=== PATIENT | male | born 1955 | race Caucasian/White ===

== ENCOUNTER 2018-02-11 06:18 | Inpatient (IN) ==
[2018-02-11] MEDS ORDERED: Folic Acid 1 MG Tablet PO ONE (07:54)
[2018-02-11] MEDS ORDERED: Haloperidol Inj 5 MG/ML Ampul IV.PUSH PRN (07:54)
--- NOTE | 2018-02-11 07:59 | ED ---
HPI General Chief Complaint: Alcohol Stated Complaint: Psy Eval/FCSO Time Seen by Provider: 02/11/18 07:42 Source: patient and police Mode of arrival: other (Police) Limitations: no limitations and other History of Present Illness HPI Narrative: Patient is a 62-year-old male presenting to the emergency department under Tyler act for psychiatric evaluation. Patient called police himself stating that he felt suicidal. Per the Tyler act report patient stated that he was weak, had been drinking bourbon, and would either stop eating until he to walk in front of traffic. Patient stated that he was too weak to unlock the door to allow a law enforcement into his hotel room. Please had to reach the door by force. When they found him he was lying in bed, conscious and responsive with his hands under the blankets. Patient revealed his hands, and his hands he had a loaded and chambered 0.45 caliber semiautomatic pistol. Patient reported to the police at the posterior was his next step in committing suicide. Patient states that he has been struggling with depression for many years. He is currently on sertraline, he reports compliance but states is not working. Patient states he had an appointment with his doctor yesterday but blew it off. He reports that he has thought about suicide in the past but has never attempted. He has been drinking on a daily basis most of his life with a brief 4 year episode from [id number] where he was sober. Patient states his been staying in a hotel for the last week because he has had an argument with his . He states he has had a successful life and has 2 children. He has no physical complaints at this time. He reports his past medical history is significant for hypertension, hyperlipidemia, chronic pain, depression. Patient reports that he does go into withdrawal when he does not drink alcohol. MD complaint: Reports suicidal ideation Onset (ago): unknown Duration: constant History of same: Yes Relieving factors: none Exacerbating factors: alcohol Context: Reports recent alcohol abuse and significant life stressor Associated psychiatric symptoms: Reports depression Associated symptoms: Reports denies other symptoms Treatments prior to arrival: Reports none If self harm: admits thoughts of self harm Related Data Home Medications Medication Instructions Recorded Confirmed sertraline 200 mg PO DAILY 02/11/18 02/11/18 simvastatin 20 mg PO HS 02/11/18 02/11/18 Allergies Allergy/AdvReac Type Severity Reaction Status Date / Time No Known Allergies Allergy Verified 02/11/18 06:37 Review of Systems ROS: all other systems reviewed are negative PMFSH Medical History Medical History Alcoholism (Acute) Chronic pain (Acute) Depression (Acute) High cholesterol (Acute) Hypertension (Acute) Social History Social History Substance History: Active Abuse Smoking Status: Current every day smoker Tobacco Type: Cigarettes How Often Do You Have a Drink Containing Alcohol: 4 or more times a week Recent Travel in [facility] within the Last 8 Weeks: No Recent Out of Country Travel within the Last 8 Weeks: No Immunization History Tetanus Immunization: <5 Years Exam Narrative Exam Narrative: GENERAL: Well-developed, well-nourished, alert male. Presenting in no acute distress. Appears intoxicated. SKIN: Focused skin assessment warm/dry. HEAD: Atraumatic. Normocephalic. EYES: Pupils equal and round. No scleral icterus. No injection or drainage. ENT: No nasal bleeding or discharge. Mucous membranes pink and moist. NECK: Trachea midline. No JVD. CARDIOVASCULAR: Regular rate and rhythm. No murmur appreciated. RESPIRATORY: No accessory muscle use. Clear to auscultation. Breath sounds equal bilaterally. GASTROINTESTINAL: Abdomen soft, non-tender, nondistended. Hepatic and splenic margins not palpable. MUSCULOSKELETAL: No obvious deformities. No clubbing. No cyanosis. No edema. NEUROLOGICAL: Awake and alert. No obvious cranial nerve deficits. Motor grossly within normal limits. Normal speech. PSYCHIATRIC: Appropriate mood and affect; insight and judgment normal. Course Initial Documented Vital Signs Temperature 97.6 F 02/11/18 06:39 Pulse Rate 93 H 02/11/18 06:39 Respiratory Rate 16 02/11/18 06:39 Blood Pressure 134/81 02/11/18 06:39 Pulse Oximetry 99 02/11/18 06:39 Last Documented Vital Signs Temperature 97.6 F 02/11/18 06:39 Pulse Rate 86 02/11/18 22:38 Respiratory Rate 20 02/11/18 22:38 Blood Pressure 119/67 02/11/18 22:38 Pulse Oximetry 96 02/11/18 22:38 Medical Decision Making MDM Narrative Medical decision making narrative: Patient is a 62-year-old male presenting under Tyler act for psychiatric evaluation. Patient's vital signs are stable. He does appear intoxicated. Mental health screening discussed with the patient. Psychiatric screen ordered. Patient will be given IV fluids, folic acid and thiamine. Patient will be placed on a CIWA protocol. Discussed with nursing staff. Labs reviewed, mild transaminitis, thrombocytopenia. Patient has elevated anion gap, he was given 2 L of IV fluids. Patient has been resting comfortably , his vital signs been stable. He was given 2 mg of Ativan IV, he had become tremulous and experienced an episode of loose stools. Discussed lab findings with my attending physician. Patient is medically cleared for psychiatric evaluation at this time. 3:09 AM. Patient became tremulous in J pod. Patient with transfer to medical pod for evaluation and continue with CIWA protocol. Patient will be admitted to the medical service with psychiatric consultation. Medical Screen Exam Complete: Yes Emergency Medical Condition: Yes Differential Diagnosis Differential Diagnosis: Depression vs substance abuse vs mood disorder vs metabolic abnormality vs other Lab Data Lab results reviewed: Yes I reviewed the patient's lab results. Result diagrams: 02/11/18 07:15 02/11/18 07:15 Lab Results 02/11/18 02/11/18 Range/Units 07:15 07:15 WBC 5.9 (4.0-11.0) th/mm3 RBC 5.30 (4.50-5.90) mil/mm3 Hgb 17.3 H (13.0-17.0) gm/dL Hct 50.3 (39.0-51.0) % MCV 94.9 (80.0-100.0) fL MCH 32.7 (27.0-34.0) pg MCHC 34.4 (32.0-36.0) % RDW 14.7 (11.6-17.2) % Plt Count 106 L (150-450) th/mm3 MPV 7.8 (7.0-11.0) fL Neut % (Auto) 83.0 H (16.0-70.0) % Lymph % (Auto) 9.7 (9.0-44.0) % [place] % (Auto) 5.9 (0.0-8.0) % Eos % (Auto) 1.2 (0.0-4.0) % Baso % (Auto) 0.2 (0.0-2.0) % Neut # (Auto) 4.9 (1.8-7.7) th/mm3 Lymph # (Auto) 0.6 L (1.0-4.8) th/mm3 [place] # (Auto) 0.4 (0.0-0.9) th/mm3 Eos # (Auto) 0.1 (0.0-0.4) th/mm3 Baso # (Auto) 0.0 (0.0-0.2) th/mm3 WBC Differential . Differential Comment Auto diff final Sodium 133 L (136-145) meq/L Potassium 3.6 (3.5-5.1) meq/L Chloride 96 L (98-107) meq/L Carbon Dioxide 20.5 L (21.0-32.0) meq/L Anion Gap 17 H (5-15) meq/L BUN 19 H (7-18) mg/dL Creatinine 1.08 (0.60-1.30) mg/dL Estimated GFR 70 L (>89) mL/min Random Glucose 186 H (74-106) mg/dL Calcium 7.7 L (8.5-10.1) mg/dL Magnesium 2.3 (1.5-2.5) mg/dL Total Bilirubin 0.6 (0.2-1.0) mg/dL AST 176 H (15-37) U/L ALT 115 H (12-78) U/L Alkaline Phosphatase 148 H (45-117) U/L Total Protein 7.7 (6.4-8.2) g/dL Albumin 3.7 (3.4-5.0) g/dL Serum Alcohol 314 H (0-5) mg/dL Discharge Plan Discharge Disposition Patient Disposition: ED Admit(ED Internal Use Only) Discharge Details Diagnosis: Alcoholic intoxication, Alcohol withdrawal syndrome, Medical clearance for psychiatric admission, Transaminitis, Thrombocytopenia Physicians Team ED Provider: See [facility] ED Midlevel Provider: Bety Curry Primary Care Provider: UNKNOWN, Rxs /Orders / Referrals /Forms Prescriptions: No Action sertraline 100 mg Tablet 200 mg PO DAILY RF: 0 simvastatin 20 mg PO HS RF: 0 Status ED Status: Medically Cleared
[2018-02-11] MEDS ORDERED: Sod Chloride 0.9% Inj 1,000 ML IV.SIG SCH ×2 (08:00→08:45)
[2018-02-11 08:04] LABS: Baso % (Auto) 0.2 % (0.0-2.0); Eos # (Auto) 0.1 th/mm3 (0.0-0.4); Eos % (Auto) 1.2 % (0.0-4.0); Hematocrit 50.3 % (39.0-51.0); Hemoglobin 17.3 gm/dL (13.0-17.0); Lymph # (Auto) 0.6 th/mm3 (1.0-4.8); Lymph % (Auto) 9.7 % (9.0-44.0); Mean Corpuscular HGB Conc 34.4 % (32.0-36.0); Mean Corpuscular Hemoglobin 32.7 pg (27.0-34.0); Mean Corpuscular Volume 94.9 fL (80.0-100.0); Mean Platelet Volume 7.8 fL (7.0-11.0); Mono # (Auto) 0.4 th/mm3 (0.0-0.9); Mono % (Auto) 5.9 % (0.0-8.0); Neut # (Auto) 4.9 th/mm3 (1.8-7.7); Platelet Count 106 th/mm3 (150-450); Red Cell Distribution Width 14.7 % (11.6-17.2); White Blood Count 5.9 th/mm3 (4.0-11.0)
[2018-02-11 08:06] LABS: Alanine Aminotransferase 115 U/L (12-78); Albumin 3.7 g/dL (3.4-5.0); Anion Gap 17 meq/L (5-15); Aspartate Aminotransferase 176 U/L (15-37); Blood Urea Nitrogen 19 mg/dL (7-18); Calcium 7.7 mg/dL (8.5-10.1); Carbon Dioxide 20.5 meq/L (21.0-32.0); Chloride 96 meq/L (98-107); Glomerular Filtration Rate 70 mL/min (>89); Glucose,Random 186 mg/dL (74-106); Magnesium 2.3 mg/dL (1.5-2.5); Potassium 3.6 meq/L (3.5-5.1); Sodium 133 meq/L (136-145)
[2018-02-11 08:09] LABS: Alkaline Phosphatase 148 U/L (45-117); Total Protein 7.7 g/dL (6.4-8.2)
[2018-02-11 08:24] LABS: Alcohol 314 mg/dL (0-5)
[2018-02-11] MEDS ORDERED: Calcium Carbonate 500 MG Tablet PO ONE (10:36)
[2018-02-11] MEDS: LORazepam 1 MG Tablet PO PRN (15:54)
--- NOTE | 2018-02-11 16:34 | P.PNPSY ---
Received report from J pod nurses that patient is unsteady , experiencing increase in tremors, incontinent of stool. Carmen has received Ativan . Informed RON Franco that patient is exhibiting withdrawal symptoms. She recommends transferring him back to a medical bed in ED. Nurse Gil informed.
[2018-02-12] MEDS ORDERED: Thiamine Inj 100 MG in Sodium Chlor 0.9% Inj 100 ML IV.SIG ONE (03:02)
[2018-02-12] MEDS ORDERED: Sod Chloride 0.9% Inj 1,000 ML IV.CONT SCH (03:15)
[2018-02-12] MEDS ORDERED: Bisacodyl 10 MG Supp RECTAL PRN (04:19)
[2018-02-12] MEDS: Sod Chloride 0.9% Inj 1,000 ML IV.CONT SCH ×2 (04:38→16:03)
--- NOTE | 2018-02-12 09:22 | P.HPIM ---
History of Present Illness Primary Care Physician: UNKNOWN History of Present Illness: This patient is a 62 y/o male with an extensive history of alcohol abuse, depression, DLD, and HTN. Patient presented to the ED under a howell act for psychiatric evaluation. As per documentation the patient called the police himself and said he felt suicidal. He was found to be drinking at home and had a pistol loaded when the police arrived. Patient has a history of suicidal thoughts but has never attempted suicide. Patient is a poor historian and most of the history was obtained from documentation from the ED physician. He was intoxicated with an elevated alcohol level and is currently drowsy. Psychiatry was consulted and felt that he needed medical attention. Patient denies chest pain, no abd pain, no fevers, no chills. PMH HTN, DLD Social hx etoh abuse, extensive tobacco smoking hx Family hx noncontributory Inpatient Certification: I certify that the inpatient services were ordered in accordance with Medicare regulations governing the order. This includes certification that hospital inpatient services are reasonable and necessary and in the case of services not specified as inpatient-only under 42 CFR 419.22(n), that they are appropriately provided as inpatient services in accordance to with the 2-midnight benchmark under 43 CFR 412.3(e) Estimated Total Length of Stay (Days): 2 Plans for Post Hospital Care: Not yet determined Review of Systems All other systems reviewed negative except as stated in HPI PMFSH - History History Provided By: Patient - Medical History Medical History: Medical History (Last Reviewed 02/11/18 @ 08:00 by RON Franco) Alcoholism Chronic pain Depression High cholesterol Hypertension - Tobacco History Tobacco Use In Past 30 Days: Yes Smoking Status: Current every day smoker Tobacco Type: Cigarettes - Alcohol History How Often Do You Have a Drink Containing Alcohol: 4 or more times a week - Substance Use History Substance History: Active Abuse - Substance Use Type Alcohol Status: Active Route Used: By Mouth - Travel History Recent Travel in the [place] Within the Last 8 Weeks: No Recent Travel Out of the Country Within the Last 8 Weeks: No - Immunization History Tetanus Immunization: <5 Years Medications and Allergies Active Medications: Active Medications Acetaminophen (Tylenol) 650 mg PO Q4H PRN PRN Reason: Temp > 100.4 Al Hydroxide/Mg Hydroxide (Milk Of Magnesia Liq) 30 ml PO Q12H PRN PRN Reason: Mild Constipation Bisacodyl (Dulcolax Supp) 10 mg RECTAL DAILY PRN PRN Reason: SEVERE CONSITIPATION Flumazenil (Romazecon Inj) 0.2 mg IV.PUSH Q1M PRN PRN Reason: OVERSEDATION Haloperidol Lactate (Haldol Inj) 1 mg IV.PUSH Q15M PRN PRN Reason: for severe agitation Sodium Chloride (Ns Inj) 1,000 mls @ 100 mls/hr IV.CONT .Q10H VITA Last Admin: 02/12/18 04:38 Dose: 100 mls/hr Lactulose (Lactulose Liq) 30 ml PO DAILY PRN PRN Reason: SEVERE CONSITIPATION Lorazepam (Ativan Inj) 1 mg IM Q4H PRN PRN Reason: for CIWA 8-10 Lorazepam (Ativan Inj) 2 mg IV.PUSH Q15M PRN PRN Reason: for CIWA > 20 Last Admin: 02/12/18 05:41 Dose: 2 mg Lorazepam (Ativan Inj) 2 mg IV.PUSH Q1H PRN PRN Reason: for CIWA 15-20 Lorazepam (Ativan Inj) 2 mg IV.PUSH Q2H PRN PRN Reason: for CIWA 11-14 Last Admin: 02/11/18 10:22 Dose: 1 mg Lorazepam (Ativan) 1 mg PO Q4H PRN PRN Reason: for CIWA 8-10 Last Admin: 02/11/18 15:54 Dose: 1 mg Lorazepam (Ativan) 2 mg PO Q2H PRN PRN Reason: for CIWA 11-14 Last Admin: 02/12/18 02:39 Dose: 2 mg Ondansetron HCl (Zofran Inj) 4 mg IV.PUSH Q6H PRN PRN Reason: NAUSEA OR VOMITING Sennosides (Senokot) 17.2 mg PO Q12H PRN PRN Reason: Moderate Constipation Sodium Chloride (Ns Flush) 2 ml IV.FLUSH BID VITA Sodium Chloride (Ns Flush) 2 ml IV.FLUSH PRN PRN PRN Reason: FLUSH AFTER USING IV ACCESS Allergies Allergy/AdvReac Type Severity Reaction Status Date / Time No Known Allergies Allergy Verified 02/11/18 06:37 Home Medications Medication Instructions Recorded Confirmed Type sertraline 200 mg PO DAILY 02/11/18 02/11/18 History simvastatin 20 mg PO HS 02/11/18 02/11/18 History Exam Vital signs: Vital Signs 02/11/18 10:06 02/11/18 10:20 02/11/18 11:02 Temperature Pulse Rate 96 H 94 H 75 Respiratory Rate 18 18 Blood Pressure 117/72 130/80 121/69 Pulse Oximetry 99 100 98 02/11/18 18:30 02/11/18 19:32 02/11/18 22:38 Temperature Pulse Rate 103 H 102 H 86 Respiratory Rate 14 20 Blood Pressure 100/57 L 107/59 L 119/67 Pulse Oximetry 97 93 L 96 02/12/18 03:18 02/12/18 04:02 02/12/18 06:43 Temperature Pulse Rate 88 82 82 Respiratory Rate 19 16 16 Blood Pressure 98/58 L 110/78 112/72 Pulse Oximetry 99 99 02/12/18 07:36 Temperature 98.9 F Pulse Rate 75 Respiratory Rate 18 Blood Pressure 122/68 Pulse Oximetry Intake & Output 02/11/18 02/12/18 02/12/18 18:59 06:59 18:59 Intake Total 1999 101 / 101 Balance 1999 101 101 Intake: IV 1999 101 NS Inj 1,000 ML @ 1000 mls/hr 1999 IV.SIG BOLUS VITA Rx#:[id number] Thiamine Inj 100 MG In NS Inj 100 ML @ 100 mls/hr IV.SIG ONCE ONE Rx#:[id number] Narrative: Patient drowsy, laying down in bed, tremors noted when patient asked to put his arms out. S1S2 CTA B/L Abd soft, nontender, mildly distended, normal bowel sounds 2+ distal pulses Alert and Oriented x 3. Slow to respond to questions. No focal neurological deficits. Results - Labs CBC & Chem 7: 02/11/18 07:15 02/11/18 07:15 Caprini VTE Risk Assessment Caprini VTE Risk Assessment: Moderate/High Risk (score >= 2) Caprini Risk Assessment Model: Point Value = 1 Point Value = 2 Point Value = 3 Point Value = 5 Age 41-60 Minor surgery BMI > 25 kg/m2 Swollen legs Varicose veins or History of unexplained or recurrent spontaneous Oral contraceptives or hormone replacement Sepsis (< 1 month) Serious lung disease, including pneumonia (< 1 month) Abnormal pulmonary function Acute myocardial infarction Congestive heart failure (< 1 month) History of inflammatory bowel disease Medical patient at bed rest Age 61-74 Arthroscopic surgery Major open surgery (> 45 min) Laparoscopic surgery (> 45 min) Malignancy Confined to bed (> 72 hours) Immobilizing plaster cast Central venous access Age >= 75 History of VTE Family history of VTE Factor V Leiden Prothrombin [id number] Lupus anticoagulant Anticardiolipin antibodies Elevated serum homocysteine Heparin-induced thrombocytopenia Other congenital or acquired thrombophilia Stroke (< 1 month) Elective arthroplasty Hip, pelvis, or leg fracture Acute spinal cord injury (< 1 month) Prophylaxis Regimen: Total Risk Factor Score Risk Level Prophylaxis Regimen 0-1 Low Early ambulation 2 Moderate Order ONE of the following: *Sequential Compression Device (SCD) *Heparin 5000 units SQ BID 3-4 Higher Order ONE of the following medications: *Heparin 5000 units SQ TID *Enoxaparin/Lovenox 40 mg SQ daily (WT < 150 kg, CrCl > 30 mL/min) *Enoxaparin/Lovenox 30 mg SQ daily (WT < 150 kg, CrCl > 10-29 mL/min) *Enoxaparin/Lovenox 30 mg SQ BID (WT < 150 kg, CrCl > 30 mL/min) AND/OR *Sequential Compression Device (SCD) 5 or more Highest Order ONE of the following medications: *Heparin 5000 units SQ TID (Preferred with Epidurals) *Enoxaparin/Lovenox 40 mg SQ daily (WT < 150 kg, CrCl > 30 mL/min) *Enoxaparin/Lovenox 30 mg SQ daily (WT < 150 kg, CrCl > 10-29 mL/min) *Enoxaparin/Lovenox 30 mg SQ BID (WT < 150 kg, CrCl > 30 mL/min) AND *Sequential Compression Device (SCD) Assessment and Plan - Plan This patient is a 62 y/o male with an extensive history of alcohol abuse, depression, DLD, and HTN. Patient presented to the ED under a howell act for psychiatric evaluation. As per documentation the patient called the police himself and said he felt suicidal. He was found to be drinking at home and had a pistol loaded when the police arrived. Patient has a history of suicidal thoughts but has never attempted suicide. Patient is a poor historian and most of the history was obtained from documentation from the ED physician. He was intoxicated with an elevated alcohol level and is currently drowsy. Psychiatry was consulted and felt that he needed medical attention. 1. Alcohol withdrawals 2. Suicidal Ideation 3. Transaminitis 2/2 alcohol abuse Patient currently still drowsy and slow to respond to questions however is appropriate. On my examination patient has tremors. Currently on etoh withdrawal treatment. Continue with ativan as needed. Psychiatry following the patient given his suicidal ideation, patient says yesterday he felt like he did not have any other options and wanted to hurt himself. LFTs elevated likely 2/2 alcohol abuse. Continue IVF Continue MV, Thiamine, Folate. 4. HTN Blood pressure currently under control Continue to monitor. 5. DLD Statin currently held due to elevated LFTs Follow up am labs. SCDs for dvt prophylaxis, patient is thrombocytopenic.
[2018-02-12] MEDS: LORazepam 1 MG Tablet PO PRN ×2 (16:50→20:38)
[2018-02-13] MEDS ORDERED: Pantoprazole Inj 40 MG Vial IV.PUSH ONE (01:53)
[2018-02-13] MEDS ORDERED: Ketorolac Inj 30 MG/ML (IVP) Vial IV.PUSH ONE (01:54)
[2018-02-13] MEDS: Sod Chloride 0.9% Inj 1,000 ML IV.CONT SCH ×3 (02:45→22:36)
[2018-02-13] MEDS: LORazepam 1 MG Tablet PO PRN ×4 (04:09→18:30)
[2018-02-13 06:34] LABS: Baso % (Auto) 0.6 % (0.0-2.0); Eos # (Auto) 0.1 th/mm3 (0.0-0.4); Eos % (Auto) 5.1 % (0.0-4.0); Hematocrit 35.9 % (39.0-51.0); Hemoglobin 12.5 gm/dL (13.0-17.0); Lymph # (Auto) 0.3 th/mm3 (1.0-4.8); Lymph % (Auto) 14.4 % (9.0-44.0); Mean Corpuscular HGB Conc 34.7 % (32.0-36.0); Mean Corpuscular Volume 92.3 fL (80.0-100.0); Mean Platelet Volume 8.1 fL (7.0-11.0); Mono # (Auto) 0.2 th/mm3 (0.0-0.9); Mono % (Auto) 6.5 % (0.0-8.0); Neut # (Auto) 1.7 th/mm3 (1.8-7.7); Neut % (Auto) 73.4 % (16.0-70.0); Platelet Count 39 th/mm3 (150-450); Red Blood Count 3.89 mil/mm3 (4.50-5.90); Red Cell Distribution Width 14.3 % (11.6-17.2); White Blood Count 2.3 th/mm3 (4.0-11.0)
[2018-02-13 07:23] LABS: Alanine Aminotransferase 50 U/L (12-78); Albumin 2.4 g/dL (3.4-5.0); Alkaline Phosphatase 95 U/L (45-117); Anion Gap 9 meq/L (5-15); Aspartate Aminotransferase 51 U/L (15-37); Blood Urea Nitrogen 6 mg/dL (7-18); Calcium 6.8 mg/dL (8.5-10.1); Carbon Dioxide 22.2 meq/L (21.0-32.0); Chloride 108 meq/L (98-107); Glomerular Filtration Rate Greater Than 89 mL/min (>89); Glucose,Random 85 mg/dL (74-106); Potassium 3.3 meq/L (3.5-5.1); Sodium 139 meq/L (136-145); Total Protein 5.6 g/dL (6.4-8.2)
[2018-02-13] MEDS: Folic Acid 1 MG Tablet PO SCH (09:14)
--- NOTE | 2018-02-13 11:08 | P.PNIM ---
Subjective Interval history: Patient says he feels depressed. Tremors noted on my examination today. Physical Exam Vital signs: Vital Signs 02/12/18 16:00 02/12/18 20:00 02/13/18 00:00 Temperature 98.1 F 98.2 F 98.8 F Pulse Rate 65 63 65 Respiratory Rate 20 18 18 Blood Pressure 119/56 L 141/68 H 152/77 H Pulse Oximetry 96 99 95 02/13/18 08:00 Temperature 98.2 F Pulse Rate 48 L Respiratory Rate 18 Blood Pressure 126/64 Pulse Oximetry 98 Intake & Output 02/12/18 02/13/18 02/13/18 18:59 06:59 18:59 Intake Total 1999 / 1999 1000 / 1000 Output Total 350 / 350 Balance 1650 / 1650 1000 / 1000 Weight 90.1 kg Intake: IV 1999 1000 / 1000 NS Inj 1,000 ML @ 100 mls/hr IV 1999 1000 / 1000 .CONT .Q10H VITA Rx#:[id number] Output: Urine 350 / 350 Other: Date of Last Bowel Movement 02/11/18 Narrative: General patient says he feels depressed. Tremors noted on examination. HEENT extraocular movements are intact, clear oropharyngeal mucosa, no JVD Cardiovascular S1-S2 audible, RRR, no murmurs rubs or gallops Respiratory clear to auscultation bilaterally Abdomen soft, nontender, nondistended, normal bowel sounds Extremities tremors noted of bilateral upper extremities. Neuro cranial nerves II through XII intact Results - Labs CBC & Chem 7: 02/13/18 06:04 02/13/18 06:04 Laboratory Results - last 24 hr 02/13/18 02/13/18 06:04 06:04 WBC 2.3 L RBC 3.89 L Hgb 12.5 L D Hct 35.9 L MCV 92.3 MCH 32.0 MCHC 34.7 RDW 14.3 Plt Count 39 L D MPV 8.1 Prelim Diff (Auto) Slide review pending Neut % (Auto) 73.4 H Lymph % (Auto) 14.4 [place] % (Auto) 6.5 Eos % (Auto) 5.1 H Baso % (Auto) 0.6 Neut # (Auto) 1.7 L Lymph # (Auto) 0.3 L [place] # (Auto) 0.2 Eos # (Auto) 0.1 Baso # (Auto) 0.0 WBC Differential . Diff Scan Auto diff confirmed Differential Comment . Sodium 139 Potassium 3.3 L Chloride 108 H D Carbon Dioxide 22.2 Anion Gap 9 BUN 6 L Creatinine 0.55 L Estimated GFR Greater than 89 Random Glucose 85 D Calcium 6.8 L* D Calcium Adj for Albumin 8.1 L Total Bilirubin 0.5 AST 51 H ALT 50 Alkaline Phosphatase 95 Total Protein 5.6 L D Albumin 2.4 L D Assessment and Plan - Plan This patient is a 62 y/o male with an extensive history of alcohol abuse, depression, DLD, and HTN. Patient presented to the ED under a tyler act for psychiatric evaluation. As per documentation the patient called the police himself and said he felt suicidal. He was found to be drinking at home and had a pistol loaded when the police arrived. Patient has a history of suicidal thoughts but has never attempted suicide. Patient is a poor historian and most of the history was obtained from documentation from the ED physician. He was intoxicated with an elevated alcohol level and is currently drowsy. Psychiatry was consulted and felt that he needed medical attention. 1. Alcohol withdrawals 2. Suicidal Ideation 3. Transaminitis 2/2 alcohol abuse Patient is much more awake and alert since my evaluation yesterday. Patient has tremors on physical examination likely alcohol withdrawal symptoms. Continue with CIWA protocol. Psychiatry following the patient for suicidal ideation. Patient says he is not suicidal since coming into the hospital. LFTs improved from yesterday. Patient started on a p.o. diet, he says he does not have a good appetite as of now. Continue multivitamin, thiamine, folate. Patient still alcohol withdrawals and will need to stay in the hospital, he is currently under a Tyler sac. We will follow-up with the recognitions from psychiatry. 4. HTN Currently blood pressures in the 120s Blood pressure currently under control Continue to monitor. 5. DLD Stent will be restarted today. 6. Thrombocytopenia Platelets are currently 39,000 today. Likely secondary to alcoholic liver disease. No active signs of bleeding. We will continue to monitor the patient's platelet level. Follow a.m. labs. 7. Osteoarthritis Patient says he has generalized pain, no complaint of low back pain. Continue current pain medication regimen. Physical therapy to evaluate the patient today. SCDs for dvt prophylaxis, patient is thrombocytopenic.
[2018-02-13] MEDS: Acetaminophen 325 MG Tablet PO PRN ×2 (12:44→18:33)
[2018-02-14] MEDS: LORazepam 1 MG Tablet PO PRN ×4 (00:03→22:57)
[2018-02-14] MEDS: Acetaminophen 325 MG Tablet PO PRN (00:04)
[2018-02-14 06:57] LABS: Baso % (Auto) 0.7 % (0.0-2.0); Eos # (Auto) 0.2 th/mm3 (0.0-0.4); Eos % (Auto) 6.6 % (0.0-4.0); Hematocrit 39.4 % (39.0-51.0); Hemoglobin 13.5 gm/dL (13.0-17.0); Lymph # (Auto) 0.4 th/mm3 (1.0-4.8); Lymph % (Auto) 16.4 % (9.0-44.0); Mean Corpuscular HGB Conc 34.3 % (32.0-36.0); Mean Corpuscular Volume 93.3 fL (80.0-100.0); Mean Platelet Volume 9.4 fL (7.0-11.0); Mono # (Auto) 0.2 th/mm3 (0.0-0.9); Mono % (Auto) 6.8 % (0.0-8.0); Neut # (Auto) 1.7 th/mm3 (1.8-7.7); Neut % (Auto) 69.5 % (16.0-70.0); Platelet Count 43 th/mm3 (150-450); Red Blood Count 4.22 mil/mm3 (4.50-5.90); Red Cell Distribution Width 14.1 % (11.6-17.2); White Blood Count 2.4 th/mm3 (4.0-11.0)
[2018-02-14] MEDS: Sod Chloride 0.9% Inj 1,000 ML IV.CONT SCH ×4 (07:12→19:26)
[2018-02-14 07:27] LABS: Anion Gap 10 meq/L (5-15); Blood Urea Nitrogen 7 mg/dL (7-18); Calcium 7.7 mg/dL (8.5-10.1); Carbon Dioxide 21.5 meq/L (21.0-32.0); Chloride 108 meq/L (98-107); Glomerular Filtration Rate Greater Than 89 mL/min (>89); Glucose,Random 94 mg/dL (74-106); Magnesium 1.7 mg/dL (1.5-2.5); Potassium 3.2 meq/L (3.5-5.1); Sodium 139 meq/L (136-145)
[2018-02-14] MEDS ORDERED: Influenza (Quadrivalent) Vaccine 0.5 ML Syringe IM ONE (09:00)
[2018-02-14] MEDS: Folic Acid 1 MG Tablet PO SCH (09:21)
--- NOTE | 2018-02-14 12:43 | P.CONPSY ---
Provisional Diagnosis Admission Date: February 12, 2018 04:16 [place].: Alcohol-induced mood disorder, alcohol use disorder, history of depression and anxiety History of Present Illness Service: medicine Primary Care Provider: UNKNOWN History of Present Illness: The patient is a 62 year-old man, domiciled with his in [place], employed, with a psychiatric history of anxiety and depression, no prepsychotic hospitalizations, no previous suicidal attempts, alcohol use disorder, previously Tyler acted due to alcohol related disorders, he has been stable in Zoloft 200 mg daily prescribed by PCP, denies previous suicidal attempts, with medical history of DLD, and HTN. Patient presented to the ED under a tyler act for psychiatric evaluation. As per documentation the patient called the police himself and said he felt suicidal. He was found to be drinking at home and had a pistol loaded when the police arrived. In the initial assessment in the ER the patient was too intoxicated to provide any meaningful information. BAL was initially 314. Chart was reviewed. On my psychiatric evaluation today the patient is calm, cooperative, pleasant. The patient reports that he feels much better now. He says that at the moment he called the police he was extremely intoxicated with alcohol, he did not know what he was doing, he was very frustrated. Patient reports that he has been drinking almost every day, the drinking has been interfering with his job and his relationships. However, he is ready to be discharged, to go back to his job, to restart his life sober. The patient at this moment reports to be in a good mood, motivated, with good energy, good sleep, hopeful, determined to continue sobriety. The patient is asking for his Zoloft that he has not taking in the last 10 days. At the moment the patient denies suicidal and homicidal ideation, he and auditory hallucinations. He is fully oriented x3, no attention deficit, no filtration of consciousness. PPHx: History of depression, anxiety, no previous psychiatric admission, the patient is on Zoloft 200 mg prescribed by PCP, no suicidal PMHx: HTN, DLD Social hx: Patient was born in [place], he lives in [place] with his , employed, Etoh abuse, extensive tobacco smoking hx Family hx: No family psychiatric Review of Systems All other systems reviewed negative except as stated in HPI PMFSH - History History Provided By: Patient - Medical History Medical History: Medical History (Last Reviewed 02/14/18 @ 08:18 by Mark Quiglye) Alcoholism Chronic pain Depression High cholesterol Hypertension - Tobacco History Tobacco Use In Past 30 Days: Yes Smoking Status: Current every day smoker Tobacco Type: Cigarettes - Alcohol History How Often Do You Have a Drink Containing Alcohol: 4 or more times a week - Substance Use History Substance History: Active Abuse - Substance Use Type Alcohol Status: Active Route Used: By Mouth - Travel History Recent Travel in the [place] Within the Last 8 Weeks: No Recent Travel Out of the Country Within the Last 8 Weeks: No - Immunization History Tetanus Immunization: <5 Years Hx Influenza Vaccine This Season: No Medications and Allergies Active Medications: Active Medications Acetaminophen (Tylenol) 650 mg PO Q4H PRN PRN Reason: Temp > 100.4/pain Last Admin: 02/14/18 00:04 Dose: 650 mg Al Hydroxide/Mg Hydroxide (Milk Of Magnesia Liq) 30 ml PO Q12H PRN PRN Reason: Mild Constipation Atorvastatin Calcium (Lipitor) 20 mg PO HS [facility] Last Admin: 02/13/18 22:35 Dose: 20 mg Bisacodyl (Dulcolax Supp) 10 mg RECTAL DAILY PRN PRN Reason: SEVERE CONSITIPATION Folic Acid (Folic Acid) 1 mg PO DAILY [facility] Last Admin: 02/14/18 09:21 Dose: 1 mg Haloperidol Lactate (Haldol Inj) 1 mg IV.PUSH Q15M PRN PRN Reason: for severe agitation Sodium Chloride (Ns Inj) 1,000 mls @ 100 mls/hr IV.CONT .Q10H [facility] Last Admin: 02/14/18 09:27 Dose: 100 mls/hr Lactulose (Lactulose Liq) 30 ml PO DAILY PRN PRN Reason: SEVERE CONSITIPATION Lorazepam (Ativan Inj) 1 mg IM Q4H PRN PRN Reason: for CIWA 8-10 Lorazepam (Ativan Inj) 2 mg IV.PUSH Q15M PRN PRN Reason: for CIWA > 20 Last Admin: 02/12/18 05:41 Dose: 2 mg Lorazepam (Ativan Inj) 2 mg IV.PUSH Q1H PRN PRN Reason: for CIWA 15-20 Lorazepam (Ativan Inj) 2 mg IV.PUSH Q2H PRN PRN Reason: for CIWA 11-14 Last Admin: 02/11/18 10:22 Dose: 1 mg Lorazepam (Ativan) 1 mg PO Q4H PRN PRN Reason: for CIWA 8-10 Last Admin: 02/14/18 03:37 Dose: 1 mg Lorazepam (Ativan) 2 mg PO Q2H PRN PRN Reason: for CIWA 11-14 Last Admin: 02/12/18 02:39 Dose: 2 mg Multivitamins (Theragran) 1 tab PO DAILY [facility] Last Admin: 02/14/18 09:21 Dose: 1 tab Ondansetron HCl (Zofran Inj) 4 mg IV.PUSH Q6H PRN PRN Reason: NAUSEA OR VOMITING Sennosides (Senokot) 17.2 mg PO Q12H PRN PRN Reason: Moderate Constipation Sodium Chloride (Ns Flush) 2 ml IV.FLUSH BID [facility] Last Admin: 02/13/18 22:35 Dose: Not Given Sodium Chloride (Ns Flush) 2 ml IV.FLUSH PRN PRN PRN Reason: FLUSH AFTER USING IV ACCESS Thiamine HCl (Vitamin B1) 100 mg PO BID [facility] Last Admin: 02/14/18 09:22 Dose: 100 mg Allergies Allergy/AdvReac Type Severity Reaction Status Date / Time No Known Allergies Allergy Verified 02/11/18 06:37 Home Medications Medication Instructions Recorded Confirmed Type sertraline 200 mg PO DAILY 02/11/18 02/11/18 History simvastatin 20 mg PO HS 02/11/18 02/11/18 History Exam Vital signs: Vital Signs 02/13/18 16:00 02/13/18 20:00 02/14/18 00:00 Temperature 98.3 F 98.9 F 97.8 F Pulse Rate 85 91 H 74 Respiratory Rate 18 20 18 Blood Pressure 137/83 125/62 136/84 Pulse Oximetry 99 99 97 02/14/18 04:00 02/14/18 08:00 Temperature 98 F 98.3 F Pulse Rate 70 85 Respiratory Rate 20 18 Blood Pressure 150/89 H 129/78 Pulse Oximetry 100 99 Intake & Output 02/13/18 02/14/18 02/14/18 18:59 06:59 18:59 Intake Total 1480 / 1480 1960 / 1960 1000 / 1000 Output Total 1250 / 1250 Balance 1480 / 1480 710 / 710 1000 / 1000 Weight 87.6 kg Intake: IV 1000 / 1000 1000 / 1000 1000 / 1000 NS Inj 1,000 ML @ 100 mls/hr IV 1000 / 1000 1000 / 1000 1000 / 1000 .CONT .Q10H [facility] Rx#:[id number] Oral 480 / 480 960 / 960 Output: Urine 1250 / 1250 Other: # Voids 5 Date of Last Bowel Movement 02/14/18 # Bowel Movements 5 2 Narrative: No withdrawal symptoms, no tremors, no EPS, - Constitutional no acute distress - Routine HEENT Exam Head: Present: normocephalic Mental Status Examination Appearance: Appropriate Consciousness: Alert Orientation: x4 Motor Activity: Normal gait Speech: Unremarkable Language: Adequate Fund of Knowledge: Adequate Attention and Concentration: Adequate Memory: Unremarkable Mood: Appropriate Affect: Appropriate Thought Process & Associations: Intact Thought Content: Appropriate Hallucination Type: None Delusion Type: None Suicidal Ideation: No Suicidal Plan: No Suicidal Intention: No Homicidal Ideation: No Homicidal Plan: No Homicidal Intention: No Insight: Adequate Judgment: Adequate Assessment and Plan - Assessment (1) Alcohol-induced mood disorder Code(s): F10.94 - Alcohol use, unspecified with alcohol-induced mood disorder Status: Acute - Plan Plan: On psychiatric evaluation today the patient is calm, cooperative, logical, coherent and relevant. The patient reports to be in a much better mood today, denies hopelessness, denies helplessness, denies worthlessness, he denies suicidal and homicidal ideation, he denies visual and auditory hallucinations. The patient is quite future oriented, interested in continue his Zoloft 200 mg. Also to continue sobriety. Patient has a psychiatric history of depression, anxiety and alcohol use disorder, no prepsychotic hospitalizations, no pre- suicide attempts. His recent suicidal gesture was probably the result of alcohol intoxication. I will start Zoloft 100 mg today. He does not meet criteria for involuntary psychiatric admission. Tyler act will be lifted. Justification for Continued Inpatient Stay: Please, lift Tyler act
[2018-02-14] MEDS ORDERED: Sertraline 100 MG Tablet PO SCH ×2 (13:00→16:41)
--- NOTE | 2018-02-14 16:33 | P.PNIM ---
Subjective Interval history: Patient says he feels better today. On examination the patient still has tremors. Physical Exam Vital signs: Vital Signs 02/13/18 20:00 02/14/18 00:00 02/14/18 04:00 Temperature 98.9 F 97.8 F 98 F Pulse Rate 91 H 74 70 Respiratory Rate 20 18 20 Blood Pressure 125/62 136/84 150/89 H Pulse Oximetry 99 97 100 02/14/18 08:00 02/14/18 12:00 Temperature 98.3 F 97.9 F Pulse Rate 85 95 H Respiratory Rate 18 17 Blood Pressure 129/78 110/70 Pulse Oximetry 99 98 Intake & Output 02/13/18 02/14/18 02/14/18 18:59 06:59 18:59 Intake Total 1480 / 1480 1960 / 1960 1000 / 1000 Output Total 1250 / 1250 Balance 1480 / 1480 710 / 710 1000 / 1000 Weight 87.6 kg Intake: IV 1000 / 1000 1000 / 1000 1000 / 1000 NS Inj 1,000 ML @ 100 mls/hr IV 1000 / 1000 1000 / 1000 1000 / 1000 .CONT .Q10H [facility] Rx#:[id number] Oral 480 / 480 960 / 960 Output: Urine 1250 / 1250 Other: # Voids 5 Date of Last Bowel Movement 02/14/18 # Bowel Movements 5 2 Narrative: General patient says he feels much better today. He says he is embarrassed for his suicidal thoughts. HEENT extraocular movements are intact, clear oropharyngeal mucosa, no JVD Cardiovascular S1-S2 audible, RRR, no murmurs rubs or gallops Respiratory clear to auscultation bilaterally Abdomen soft, nontender, nondistended, normal bowel sounds Extremities tremors noted of bilateral upper extremities. Neuro cranial nerves II through XII intact Results - Labs CBC & Chem 7: 02/14/18 06:32 02/14/18 06:32 Laboratory Results - last 24 hr 02/14/18 02/14/18 06:32 06:32 WBC 2.4 L RBC 4.22 L Hgb 13.5 Hct 39.4 MCV 93.3 MCH 32.0 MCHC 34.3 RDW 14.1 Plt Count 43 L MPV 9.4 Prelim Diff (Auto) Slide review pending Neut % (Auto) 69.5 Lymph % (Auto) 16.4 Lane % (Auto) 6.8 Eos % (Auto) 6.6 H Baso % (Auto) 0.7 Neut # (Auto) 1.7 L Lymph # (Auto) 0.[address] # (Auto) 0.2 Eos # (Auto) 0.2 Baso # (Auto) 0.0 WBC Differential . Diff Scan Auto diff confirmed Differential Comment . Platelet Estimate Low L Platelet Morphology Enlarged H Sodium 139 Potassium 3.2 L Chloride 108 H Carbon Dioxide 21.5 Anion Gap 10 BUN 7 Creatinine 0.62 Estimated GFR Greater than 89 Random Glucose 94 Calcium 7.7 L D Magnesium 1.7 Assessment and Plan - Plan This patient is a 62 y/o male with an extensive history of alcohol abuse, depression, DLD, and HTN. Patient presented to the ED under a tyler act for psychiatric evaluation. As per documentation the patient called the police himself and said he felt suicidal. He was found to be drinking at home and had a pistol loaded when the police arrived. Patient has a history of suicidal thoughts but has never attempted suicide. Patient is a poor historian and most of the history was obtained from documentation from the ED physician. He was intoxicated with an elevated alcohol level and is currently drowsy. Psychiatry was consulted and felt that he needed medical attention. 1. Alcohol withdrawals 2. Suicidal Ideation 3. Transaminitis 2/2 alcohol abuse Patient is alert and oriented x3. He is answering my questions and follow commands appropriately. Patient has tremors on physical examination from alcohol withdrawals, improving. Continue with CIWA protocol. Psychiatry following the patient for suicidal ideation. Patient says he is not suicidal since coming into the hospital. He was reevaluated by psychiatry, Tyler act lifted. LFTs improved from admission. Patient started on a p.o. diet tolerating his diet well. Continue multivitamin, thiamine, folate. Patient still alcohol withdrawals and will need to stay in the hospital. We will reevaluate the patient tomorrow, he may possibly be discharged tomorrow. 4. HTN Currently blood pressures in the 120s Blood pressure currently under control Continue to monitor. 5. DLD Stent will be restarted today. 6. Thrombocytopenia Platelets are currently 43,000 likely secondary to alcoholic liver disease. No active signs of bleeding. We will continue to monitor the patient's platelet level. Follow a.m. labs. 7. Osteoarthritis Patient says he has generalized pain. Continue current pain medication regimen. Physical therapy to evaluate the patient today. SCDs for dvt prophylaxis, patient is thrombocytopenic.
[2018-02-15] MEDS: LORazepam 1 MG Tablet PO PRN (06:48)
[2018-02-15] MEDS: Sod Chloride 0.9% Inj 1,000 ML IV.CONT SCH ×2 (06:49→12:09)
[2018-02-15] MEDS: Folic Acid 1 MG Tablet PO SCH (08:47)
[2018-02-15] MEDS: Acetaminophen 325 MG Tablet PO PRN ×2 (13:02→17:54)
--- NOTE | 2018-02-15 15:59 | P.DS ---
Date of admission: 02/12/18 04:16 Primary care physician: UNKNOWN Brief History from admission: This patient is a 62 y/o male with an extensive history of alcohol abuse, depression, DLD, and HTN. Patient presented to the ED under a howell act for psychiatric evaluation. As per documentation the patient called the police himself and said he felt suicidal. He was found to be drinking at home and had a pistol loaded when the police arrived. Patient has a history of suicidal thoughts but has never attempted suicide. Patient is a poor historian and most of the history was obtained from documentation from the ED physician. He was intoxicated with an elevated alcohol level and is currently drowsy. Psychiatry was consulted and felt that he needed medical attention. Patient denies chest pain, no abd pain, no fevers, no chills. PMH HTN, DLD Social hx etoh abuse, extensive tobacco smoking hx Family hx noncontributory DS: Medications - Discharge Medications Prescriptions: atorvastatin 20 mg PO HS #30 tab multivitamin with folic acid [Thera] 1 tab PO DAILY #30 tab sertraline 200 mg PO DAILY #60 tab thiamine HCl (vitamin B1) 100 mg PO BID #30 tab DS: Summary Hospital Course: This patient is a 62 y/o male with an extensive history of alcohol abuse, depression, DLD, and HTN. Patient presented to the ED under a howell act for psychiatric evaluation. As per documentation the patient called the police himself and said he felt suicidal. He was found to be drinking at home and had a pistol loaded when the police arrived. Patient has a history of suicidal thoughts but has never attempted suicide. Patient is a poor historian and most of the history was obtained from documentation from the ED physician. He was intoxicated with an elevated alcohol level and is currently drowsy. Psychiatry was consulted and felt that he needed medical attention. 1. Alcohol withdrawals 2. Suicidal Ideation 3. Transaminitis 2/2 alcohol abuse Patient initially was started on CIWA protocol. His alcohol withdrawal symptoms have improved significantly. Patient is alert and oriented x3. He is answering my questions and follow commands appropriately. Tremors have improved. Patient given scripts for MV, thiamine, and folate. Initially patient was under a bakers act. Evaluated by psych and the howell act was lifted. Patient currently does not have any suicidal ideation. LFTs improved from admission. Patient started on a p.o. diet tolerating his diet well. Scripts given to the patient. Patient will be discharged home. Transportation to go home will be given to the patient. He will be discharged with a front wheel walker. Patient does not want home health and is ambulating around our unit. 4. HTN Currently blood pressures in the 120s Blood pressure currently under control Continue to monitor. 5. DLD Stent will be restarted today. 6. Thrombocytopenia Patient has low plt count likely from etoh abuse. No signs of bleeding. - Time Spent with Patient Total time spent providing and/or coordinating discharge services: Greater than 30 minutes - Quality: VTE Deep Vein Thrombosis/Pulmonary Embolism Present on Admission: No Exam Vital signs: Vital Signs 02/14/18 16:00 02/14/18 20:00 02/15/18 00:00 Temperature 97.9 F 98.2 F 98.3 F Pulse Rate 95 H 89 82 Respiratory Rate 17 19 16 Blood Pressure 110/70 146/88 H 149/82 H Pulse Oximetry 98 99 99 02/15/18 04:00 02/15/18 06:52 02/15/18 08:00 Temperature 98.2 F 97.8 F Pulse Rate 84 80 77 Respiratory Rate 16 20 20 Blood Pressure 139/81 134/82 150/88 H Pulse Oximetry 99 97 02/15/18 12:00 Temperature 97.6 F Pulse Rate 95 H Respiratory Rate 22 Blood Pressure 142/85 H Pulse Oximetry 97 Intake & Output 02/14/18 02/15/18 02/15/18 18:59 06:59 18:59 Intake Total 1840 / 1840 1999 Output Total 800 / 800 Balance 1040 / 1040 1999 Weight 87.6 kg Intake: IV 1000 / 1000 1999 NS Inj 1,000 ML @ 100 mls/hr IV 1000 / 1000 1999 .CONT .Q10H [facility] Rx#:[id number] Oral 840 / 840 Output: Urine 800 / 800 Other: # Bowel Movements 0 Narrative: General patient says he feels much better today. Tremors improved. HEENT extraocular movements are intact, clear oropharyngeal mucosa, no JVD Cardiovascular S1-S2 audible, RRR, no murmurs rubs or gallops Respiratory clear to auscultation bilaterally Abdomen soft, nontender, nondistended, normal bowel sounds Extremities no edema Neuro cranial nerves II through XII intact Results Procedures completed during hospitalization: none Discharge Plan - Discharge Disposition Patient Disposition: 01 Discharge Home - Discharge Condition Condition: Good - Discharge Order Discharge Orders: Discharge Order (Routine); Ordered 02/15/18 Ordered By: Ketty Stanley ED Use Only Admit Order (Routine); Ordered 02/12/18 Ordered By: Randal Posada - Physicians Team Primary Care Provider: UNKNOWN, Attending Provider: Ketty Stanley Other Providers: Anish Mota MD
== END 2018-02-15 18:53 | disposition home or self-care (01) ==
LOC: NEPD 06:18 → NEDA 02-12 04:16 → N04 02-12 14:53
PROVIDERS: ADMIT Hospitalist; ATTEND Hospitalist